=== PATIENT | male | born 1960 | race Caucasian/White ===

== ENCOUNTER 2021-06-10 05:50 | Observation (INO) ==
--- NOTE | 2021-05-17 14:59 | PAT Medication Instructions ---
Medication Instructions Date of Service May 17, 2021 Home Medications aspirin 81 mg tablet 81 mg PO QAM cholecalciferol (vitamin D3) 25 mcg (1,000 unit) tablet (Vitamin D3) 25 mcg PO QAM diphenhydramine HCl 25 mg capsule (Benadryl) 25 mg PO QAM furosemide 20 mg tablet (Lasix) 20 mg PO QAM multivitamin 1 tab PO QAM omega-3 fatty acids 500 mg PO QAM potassium chloride 10 mEq tablet,extended release 10 meq PO QAM pravastatin 20 mg tablet 20 mg PO QAM primidone 50 mg tablet 100 mg PO QAM pyridoxine (vitamin B6) 100 mg tablet (Vitamin B-6) 100 mg PO QAM sertraline 100 mg tablet 100 mg PO QAM STOP taking 2 weeks before surgery omega-3 fatty acids 500 mg PO QAM DO NOT take the morning of surgery cholecalciferol (vitamin D3) 25 mcg (1,000 unit) tablet (Vitamin D3) 25 mcg PO QAM diphenhydramine HCl 25 mg capsule (Benadryl) 25 mg PO QAM furosemide 20 mg tablet (Lasix) 20 mg PO QAM multivitamin 1 tab PO QAM potassium chloride 10 mEq tablet,extended release 10 meq PO QAM pyridoxine (vitamin B6) 100 mg tablet (Vitamin B-6) 100 mg PO QAM Take morning of surgery With a small sip of water, OTHERWISE NOTHING TO EAT OR DRINK AFTER MIDNIGHT: aspirin 81 mg tablet 81 mg PO QAM (unless directed otherwise by surgeon) pravastatin 20 mg tablet 20 mg PO QAM primidone 50 mg tablet 100 mg PO QAM sertraline 100 mg tablet 100 mg PO QAM Other Notes If you have any questions please call us at [phone] or [phone] or [phone] or [phone]
--- NOTE | 2021-05-18 13:33 | Anesthesiology Consultation ---
Date of Service May 18, 2021 Assessment & Plan (1) Encounter for pre-operative examination: - Outpatient joint pathway: Per surgeon and patient, plan for outpatient joint program. Case discussed with Dr. Cat. Upon review of chart- patient is NOT recommended candidate for Same Day Joint Program from anesthesia perspective pending perioperative course given h/o supplemental oxygen needed post-op, untreated sleep apnea. Lidia at surgeon's office made aware. - COVID screening: Per assessment on 05/18/2021: Travel screen negative, no known COVID-19 positive contacts or current COVID-19 related symptoms in past 2 weeks. Patient vaccinated. Surgeon arranging preop COVID testing, scheduled 06/08/2021. Awaiting results. Chart Review Chart Review: Acceptable Risk for Surgery and Patient seen in Pre Admission Testing Teaching & Discussion Pre-Anesthesia Teaching/Discussion Notes: Instructed NPO after midnight before surgery, except medications with 15 cc of water. Medication instructions provided according to the PAT guidelines. History Surgery Operation Date: 06/10/21 09:10 Proposed Procedures p Left Total Knee Arthroplasty - Colton Stone DO Height/Weight Height: 6 ft 1 in Weight: 141.8 kg Allergies Allergy/AdvReac Type Severity Reaction Status Date / Time No Known Allergies Allergy Verified 05/17/21 10:01 Medications Home Medications Medication Instructions Recorded Confirmed Last Taken aspirin 81 mg tablet 81 mg PO QAM 05/17/21 05/18/21 Unknown cholecalciferol (vitamin D3) 25 25 mcg PO QAM 05/17/21 05/18/21 Unknown mcg (1,000 unit) tablet (Vitamin D3) diphenhydramine HCl 25 mg capsule 25 mg PO QAM 05/17/21 05/18/21 Unknown (Benadryl) furosemide 20 mg tablet (Lasix) 20 mg PO QAM 05/17/21 05/18/21 Unknown multivitamin 1 tab PO QAM 05/17/21 05/18/21 Unknown omega-3 fatty acids 500 mg PO QAM 05/17/21 05/18/21 Unknown potassium chloride 10 mEq 10 meq PO QAM 05/17/21 05/18/21 Unknown tablet,extended release pravastatin 20 mg tablet 20 mg PO QAM 05/17/21 05/18/21 Unknown primidone 50 mg tablet 100 mg PO QAM 05/17/21 05/18/21 Unknown pyridoxine (vitamin B6) 100 mg 100 mg PO QAM 05/17/21 05/18/21 Unknown tablet (Vitamin B-6) sertraline 100 mg tablet 100 mg PO QAM 05/17/21 05/18/21 Unknown Past Medical History Medical History Anxiety Borderline hypertension HLD (hyperlipidemia) Osteoarthritis Sleep apnea Tremor Patient denies h/o stroke, seizures, heart attack, heart failure, DM, blood clots or blood transfusions. Exercise / Class Metabolic Activity II 4-5 Yardwork/Stairs/Walk up hill (denies CP or SOB with 1 FOS) Past Family History Family History Other No family history of adverse response to anesthesia Past Surgical History Surgical History Benign skin growth History of arthroscopy of left knee History of tonsillectomy Past Anesthesia History No Family Hx of Anesthesia Complications and Other ("wakes up better with oxygen" states has often required supplemental O2 post-op, denies re-intubation) History of PONV No Hx of PONV and No Hx of Motion Sickness Social History Smoking Status: Former smoker tobacco type: smokeless tobacco Do You Dip or Chew Tobacco: Yes (1 can daily-NPO) Smoking End Date: quit 4 years ago Hx Alcohol Use: Yes Alcohol type: beer, wine and hard liquor alcohol intake frequency: a few times a month Hx Substance Use: No substance use type: does not use Review of Systems Patient denies chest pain, shortness of breath, dyspnea on exertion, reflux, fever, chills, cough, wheezing, or palpitations. Physical Exam Vital Signs Vitals BP 154/93 P 63 TEMP 99.2 SP02 96% on RA RESP 17 Physical Full cervical extension range of motion without pain Full TMJ range of motion TMD 3.5 finger breaths Mallampati Score 2 Dentition: edentulous Lungs: normal respiratory effort. Clear throughout to auscultation, no adventitious breath sounds Cardiac: regular rate and rhythm, no murmurs noted Carotid arteries: negative bruit bilat Extremities: no distal extremity edema Lab Results Anesthesia Preop Results Results Anesthesia Widget: WBC 5.82 K/uL (4.8-10.8) 05/18/21 Hgb 15.6 g/dL (14.0-18.0) 05/18/21 Hct 44.8 % (42-52) 05/18/21 Plt 170 K/uL (130-400) 05/18/21 Na 139 mmol/L (136-145) 05/18/21 K 4.0 mmol/L (3.5-5.1) 05/18/21 Cl 106 mmol/L (98-107) 05/18/21 CO2 25 mmol/L (21-32) 05/18/21 BUN 16 mg/dl (6-23) 05/18/21 Creat 0.95 mg/dl (0.6-1.4) 05/18/21 Glucose Level 126 mg/dl (70-99(Fasting)) H 05/18/21 PT 10.5 Seconds (9.0-12.0) 05/18/21 PTT 26.6 Seconds (21.0-31.0) 05/18/21 INR 1.0 (0.9-1.1) 05/18/21 Blood Type AB Positive 05/18/21 Antibody Screen NEGATIVE 05/18/21 Testing Electrocardiogram Date: 05/18/21 NSR, rate 61 bpm Chest X-Ray Date: 05/18/21 FINDINGS: Frontal and lateral radiographs of the chest demonstrate the cardiomediastinal silhouette to be within normal limits. The lungs are clear of alveolar opacities. There is no evidence for effusion bilaterally. There is no evidence for vascular congestion. There is no acute osseous pathology. IMPRESSION: 1. No acute cardiopulmonary disease.
--- NOTE | 2021-06-09 13:57 | History & Physical Report ---
Date of Service June 09, 2021 Assessment & Plan (1) Osteoarthritis of left knee: We will proceed with a left total knee arthroplasty. Postoperatively he will be started on aspirin for DVT prophylaxis and kept overnight in the hospital for postoperative medical management. He plans to use [employer] upon discharge. History of Present Illness Chief Complaint: Osteoarthritis of the left knee. Primary Care Provider: NO PCP Efrain is a pleasant 60-year-old male who is been dealing with increasing left knee pain. X-rays and clinical examination have been diagnostic for advanced osteoarthritis of the left knee. He had a left knee meniscectomy done about 15 years ago. After failing extensive conservative treatment, he is elected proceed with a left total knee arthroplasty. Allergies Allergy/AdvReac Type Severity Reaction Status Date / Time No Known Allergies Allergy Verified 05/17/21 10:01 Home Medications Medication Instructions Recorded Confirmed Type aspirin 81 mg tablet 81 mg PO QAM 05/17/21 05/18/21 History cholecalciferol (vitamin D3) 25 25 mcg PO QAM 05/17/21 05/18/21 History mcg (1,000 unit) tablet (Vitamin D3) diphenhydramine HCl 25 mg capsule 25 mg PO QAM 05/17/21 05/18/21 History (Benadryl) furosemide 20 mg tablet (Lasix) 20 mg PO QAM 05/17/21 05/18/21 History multivitamin 1 tab PO QAM 05/17/21 05/18/21 History omega-3 fatty acids 500 mg PO QAM 05/17/21 05/18/21 History potassium chloride 10 mEq 10 meq PO QAM 05/17/21 05/18/21 History tablet,extended release pravastatin 20 mg tablet 20 mg PO QAM 05/17/21 05/18/21 History primidone 50 mg tablet 100 mg PO QAM 05/17/21 05/18/21 History pyridoxine (vitamin B6) 100 mg 100 mg PO QAM 05/17/21 05/18/21 History tablet (Vitamin B-6) sertraline 100 mg tablet 100 mg PO QAM 05/17/21 05/18/21 History Past Med/Surg History Medical History Anxiety Borderline hypertension pcp monitors; no meds HLD (hyperlipidemia) Osteoarthritis Sleep apnea Prev on BiPAP, stopped use, denies repeat study Tremor hands bilat Surgical History Benign skin growth surgically removed from face History of arthroscopy of left knee History of tonsillectomy Family History Other No family history of adverse response to anesthesia Social History Smoking Status: Never smoker Second Hand Exposure: Yes ( smokes); Hx Alcohol Use: Yes Alcohol type: beer, wine and hard liquor Hx Substance Use: No Preferred Language: Chinese Communication Ability: Effective Fuse Spooler Required: No Beliefs That Will Affect Care: None Current Living Situation: Spouse Feels Safe at Home: Yes Assistive Devices: Cane, Denture - Upper, Denture - Lower and Glasses Review of Systems All systems reviewed & are unremarkable except as noted in HPI & below. Physical Exam On physical examination of his left knee, he has good range of motion of 0 to 115 degrees. No instability. Pain over the distal medial femoral condyle and over the medial joint line Constitutional WD/WN, vitals as above Eyes PERRL, conjunctivae normal, anicteric sclerae ENMT external ear and nose normal, oropharynx normal Neck trachea midline, no thyromegaly Respiratory normal respiratory effort Cardiovascular RRR, no murmur, no edema Gastrointestinal (Abdomen) normal bowel sounds, soft, nontender, no hepatosplenomegaly Psychiatric A+Ox3, euthymic affect Results & Data Results & Data Laboratory Results . Diagnostic Findings X-rays of the left knee do show advanced osteoarthritis with joint space narrowing, osteophyte formation, and [id number] articulation. PG Care Time/CCT Total # of Minutes Spent Total Time Spent with Patient: Total time spent is greater than 50% in coordination of care (as documented) at patient's floor/unit and/or counseling patient: Coding Level of Care Code None Diagnoses Osteoarthritis of left knee M17.12
[2021-06-10] MEDS ORDERED: Ketorolac (*for OR use only*) 30 MG, dexAMETHasone 4 MG, KETAMINE HCL (**OR use only) 1... INFIL SCH (06:00)
[2021-06-10] MEDS ORDERED: TRANEXAMIC ACID 1,000 MG **IV Intra-op IV SCH (06:00)
[2021-06-10] MEDS ORDERED: FAMOTIDINE 20 MG TAB PO SCH (06:00)
[2021-06-10] MEDS ORDERED: ACETAMINOPHEN 500 MG TAB PO SCH (06:00)
[2021-06-10] MEDS ORDERED: GABAPENTIN 300 MG CAP PO SCH (06:00)
[2021-06-10] MEDS ORDERED: TRANEXAMIC ACID 1,000 MG **IV Pre-op IV SCH (06:00)
[2021-06-10] MEDS ORDERED: dexAMETHasone 4 MG TAB PO SCH (06:00)
[2021-06-10] MEDS ORDERED: LR 500ML BOLUS, THEN 15ML/HR IV SCH (06:00)
[2021-06-10] MEDS ORDERED: LR 60ML/HR IV SCH (06:00)
--- NOTE | 2021-06-10 06:31 | History & Physical Bridge Note ---
Date of Service June 10, 2021 History & Physical Bridge Note I have examined the patient, reviewed the History & Physical and in the interval since the performance of the History & Physical I have noted the following changes of clinical significance: no changes noted
[2021-06-10] MEDS ORDERED: ROPIVACAINE 0.5% 5 MG/ML 30 ML VIAL ONE (06:37)
[2021-06-10] MEDS ORDERED: BUPIVACAINE 0.5 % 5 MG/1 ML PF 10ML VIAL ONE (06:37)
[2021-06-10] MEDS ORDERED: ORTHO JOINT ANESTHETIC ONE (07:07)
[2021-06-10] MEDS ORDERED: MIDAZOLAM HCL 1 MG/ML 2ML VIAL ONE ×2 (07:25→08:12)
[2021-06-10] MEDS ORDERED: fentaNYL citrate 100 MCG/2 ML VIAL ONE (07:25)
[2021-06-10] MEDS ORDERED: PROPOFOL IV EMULSION 10 MG/ML 100 ML VIAL IV ONE (07:26)
[2021-06-10] MEDS ORDERED: PROMETHAZINE HCL 12.5 MG in SODIUM CHLORIDE 0.9% 50 ML IV PRN (09:00)
[2021-06-10] MEDS ORDERED: fentaNYL citrate 100 MCG/2 ML VIAL IV PRN (09:00)
[2021-06-10] MEDS ORDERED: ePHEDrine sulfate 50 MG/ML AMP IV PRN (09:00)
[2021-06-10] MEDS ORDERED: ONDANSETRON INJ 2 MG/ML 2 ML VIAL IV PRN ×2 (09:00→10:25)
[2021-06-10] MEDS ORDERED: ATROPINE SULFATE 0.1 MG/ML 10ML SYR IV PRN (09:00)
[2021-06-10] MEDS ORDERED: HYDROmorphone INJ 2 MG/ML SYR/VIAL IV PRN (09:00)
[2021-06-10] MEDS ORDERED: ONDANSETRON INJ 2 MG/ML 2 ML VIAL ONE (09:05)
--- NOTE | 2021-06-10 09:16 | Operative Report ---
PG Post Operative Report Pre & Post Diagnosis Operation Date: 06/10/21 08:10 Pre-Op Diagnosis: Degenerative Joint Disease Left Knee Post-Op Diagnosis: Degenerative Joint Disease Left Knee I identified the patient and participated in the time-out.: Yes Procedure Operation Date: 06/10/21 08:10 Actual Procedures p Left Total Knee Arthroplasty(Left) - Colton Stone DO Surgeon Colton Stone, Rafter Cutting Machine Operator Colton Angeles PAC Estimated Blood Loss 10 Findings Consistent with Post-Op Diagnosis Specimens Left femoral and tibial bone Complications none Disposition Disposition: Recovery Room Indications Efrain is a pleasant 60-year-old male who is been doing with chronic increasing left knee pain. X-rays and clinical examination have been diagnostic for advanced arthritis of the left knee. After failing conservative treatment, he has elected to proceed with a left total knee arthroplasty. Description of Procedure Implants used: I used a Carlos Persona total knee arthroplasty system with a size 11 standard PS femur, F tibia with a 30 mm stem extension, 34 oval patella, and a size 10 CPS polyethylene bearing. All components were cemented in place with Biomet cement. Efrain arrived [facility] for the above procedure. He was seen in the preoperative holding area and the operative extremity was identified and signed. He was given a preoperative antibiotic, TXA, a spinal anesthetic and an adductor nerve block. He was taken back to the operating room and laid on the table in supine position. He was given basic sedation. The operative knee was then prepped and draped in sterile fashion. A timeout was done, and the patient and the operative extremity was properly identified. A midline incision was made directly over the patella. Dissection was taken down to the extensor mechanism. A subvastus arthrotomy was used. The medial retinaculum was released and the fat pad was mostly excised. The knee was flexed and the ACL, PCL, and meniscus were removed. A drill was sent down the center of the femoral canal followed by an intramedullary shirin. Off that shirin a distal femoral cutting block was placed. 9 mm was resected off the distal femur at 5 of valgus. A posterior referencing AP sizing guide was then placed on the distal femur. The femur measured to be a size 11 standard. 2 drill holes were placed in 3 of external rotation. A 4-in-1 cutting block was then impacted into place. Anterior, posterior, and chamfer cuts were then made. The proximal tibia was then exposed. An external tibial alignment guide was placed. A tibial cut guide was then anchored in place and the proximal tibia was then resected. The posterior aspect of the knee was then opened up and any additional meniscus fragments and osteophytes were removed. The tibia measured to be a size F. The tibial plate was then placed in the appropriate rotation and the tibia was drilled and punched. Trial components were then placed. I used a size 10 CPS polyethylene insert. The knee was brought through a full range of motion and felt to be stable. The peg holes for the femoral component were then drilled. The patella was then everted and 9 mm was resected off the posterior aspect of the patella. The patella measured to be a size 34 oval. 3 peg holes were then drilled. A trial patella was placed. The knee was once again brought through a full range of motion and felt to be stable. Trial components were then removed. The surrounding soft tissues were injected with 100 cc of an orthopedic pain control cocktail. All components were then cemented into place with Biomet cement. The final polyethylene insert was then snapped into place. Once cement was dry the tourniquet was deflated. Hemostasis was obtained. A dilute betadyne lavage was then done for 3 minutes. The joint was then irrigated with normal saline solution. The subvastus arthrotomy was then closed with #1 Vicryl suture. The skin was closed with 2-0 Vicryl, 3-0V lock suture, and jason. A soft compressive dressing was placed. He was then transferred to a hospital bed and taken to the postanesthesia care unit in stable condition. He tolerated the procedure well. Colton Angeles PA-C, was present for the entire procedure. He was critical for patient positioning, prepping, draping, retraction exposure, wound closure and application of sterile dressing. I attest to the content of the Intraoperative Record and any orders documented therein. Any exceptions are noted below.
--- NOTE | 2021-06-10 10:09 | XRay Report ---
XR knee LT 1 or 2V routine CLINICAL HISTORY: Surgical Post Op. Status post total knee replacement COMPARISON STUDY: No previous studies for comparison. TECHNIQUE: 2 left knee views FINDINGS: The patient is status post total knee replacement. The prosthetic components are in anatomi c alignment with no acute abnormality seen. Air is present within the soft tissues from the procedure . Skin jason are seen anteriorly. IMPRESSION: 1. Status post total knee replacement. ACT 112: Negative or not required by law. Electronically signed by: Lm Herndon M.D. 06/10/2021 10:07 AM
[2021-06-10] MEDS ORDERED: NALOXONE HCL 0.4 MG/1 ML VIAL/CARP IV PRN (10:25)
[2021-06-10] MEDS ORDERED: SODIUM CHLORIDE 0.9% 1000ML 1,000 ML IV SCH (10:25)
[2021-06-10] MEDS ORDERED: HYDROmorphone INJ 0.5 MG/0.5 ML SYR IV PRN (10:25)
[2021-06-10] MEDS ORDERED: MAGNESIUM HYDROXIDE SUSP 30 ML UDC PO PRN (10:25)
[2021-06-10] MEDS ORDERED: oxyCODONE HCL IR 5 MG TAB (IMMEDIATE RELEASE) PO PRN (10:25)
[2021-06-10] MEDS ORDERED: bisacodyL 10 MG SUPP PR PRN (10:25)
[2021-06-10] MEDS ORDERED: METOCLOPRAMIDE HCL INJ 5 MG/ML 2 ML VIAL IV PRN (10:25)
--- NOTE | 2021-06-10 11:42 | Anesthesiology Progress Note ---
Date of Service June 10, 2021 Anesthesia Post Procedure Vital Signs Vital Signs: Temp Pulse Pulse Resp BP Pulse Ox 06/10/21 11:32 36.6 C 69 16 104/62 97 06/10/21 10:56 36.5 C 66 16 105/66 94 06/10/21 10:25 36.6 C 71 18 101/64 87 L 06/10/21 10:10 36.4 C L 72 14 114/64 94 06/10/21 10:00 76 14 107/62 94 06/10/21 09:50 83 14 101/60 94 06/10/21 09:40 36.5 C 75 12 98/52 L 98 06/10/21 06:34 36.9 C 66 18 172/82 H 95 Pain Intensity Left Knee: Pain Intensity: 6 Transfer of Care Handoff Completed per policy Notes Mental Status: alert / awake / arousable and participated in evaluation Patient Amnestic to Procedure: Yes Nausea / Vomiting: adequately controlled Pain: adequately controlled Airway Patency, RR, SpO2: stable & adequate BP & HR: stable & adequate Hydration State: stable & adequate Anesthetic Complications: no major complications apparent
[2021-06-10] MEDS: ACETAMINOPHEN 500 MG TAB PO SCH ×2 (12:12→20:55)
[2021-06-10] MEDS: KETOROLAC 30 MG/ML VIAL IV SCH ×2 (12:12→18:11)
[2021-06-10] MEDS: ceFAZolin 2000MG 2,000 MG/15 ML SYR IV SCH (15:10)
[2021-06-10] MEDS: ASPIRIN 81 MG ECTAB PO SCH (20:54)
[2021-06-10] MEDS: DOCUSATE SODIUM 100 MG CAP PO SCH (20:55)
[2021-06-10] MEDS ORDERED: SENNA 8.6 MG TAB PO SCH (21:00)
[2021-06-11] MEDS: ceFAZolin 2000MG 2,000 MG/15 ML SYR IV SCH (00:48)
[2021-06-11] MEDS: KETOROLAC 30 MG/ML VIAL IV SCH ×2 (00:50→06:10)
[2021-06-11] MEDS: ACETAMINOPHEN 500 MG TAB PO SCH (06:09)
[2021-06-11] MEDS ORDERED: dexAMETHasone 4 MG TAB PO SCH (08:00)
--- NOTE | 2021-06-11 08:12 | Orthopedic Progress Note ---
Date of Service June 11, 2021 Assessment & Plan (1) Status post left knee replacement: Overall is doing very well. Is not any much pain in the left knee. He will be seen by physical therapy today for ambulation and range of motion exercises. His dressing can be changed by the nursing staff after physical therapy. He is on aspirin for DVT prophylaxis. He can be discharged home later today. He will follow-up with orthopedics in 2 weeks. Jeronimo Zuniga was seen and examined at bedside this morning. Overall is doing very well. Is not having much pain in the left knee. He has been up and ambulating to the bathroom. He has no complaints. Review of Systems All systems reviewed & are unremarkable except as noted in HPI & below. Physical Exam On physical examination of the left knee, the dressing is clean and dry. His leg is out full extension. He has active dorsiflexion plantarflexion of his left ankle.. Results & Data Results & Data Laboratory Results . Diagnostic Findings Postoperative x-rays of the left knee show the prosthesis to be in anatomic alignment without any evidence of fracture, dislocation, or loosening. PG Care Time/CCT Total # of Minutes Spent Total Time Spent with Patient: Total time spent is greater than 50% in coordination of care (as documented) at patient's floor/unit and/or counseling patient: Coding Level of Care Code 91316 Post Operative Follow-Up Diagnoses Status post left knee replacement Z96.652
--- NOTE | 2021-06-11 08:16 | Discharge Summary ---
Date of Service June 11, 2021 Admission HPI (Per Admitting) Efrain is a pleasant 60-year-old male who is been dealing with increasing left knee pain. X-rays and clinical examination have been diagnostic for advanced osteoarthritis of the left knee. He had a left knee meniscectomy done about 15 years ago. After failing extensive conservative treatment, he is elected proceed with a left total knee arthroplasty. Admission Exam (Per Admitting) On physical examination of his left knee, he has good range of motion of 0 to 115 degrees. No instability. Pain over the distal medial femoral condyle and over the medial joint line Principal Diagnosis Same as "Discharge Diagnosis" noted below under Discharge Instructions. Discharge Exam On physical examination of the left knee, the dressing is clean and dry. His leg is out full extension. He has active dorsiflexion plantarflexion of his left ankle.. Discharge Data Procedures Performed Operation Date: 06/10/21 08:10 Actual Procedures p Left Total Knee Arthroplasty(Left) - Colton Stone DO Ordered Studies 06/10/21 05:00 US - OR guided needle placemen Routine Hospital Course (1) Status post left knee replacement: On June 10, 2021 Efrain arrived at [facility] and underwent a left knee replacement without complication. He had a spinal anesthetic. Postoperatively he was started on aspirin for DVT prophylaxis and transferred to general orthopedic floors. His hospital course was uneventful. On postop day #1 his vital signs were stable and his pain was well controlled. He was able to participate well with physical therapy doing ambulation and range of motion exercises. He was then discharged home. He will follow-up with orthopedics in 2 weeks. PG Care Time/CCT Total # of Minutes Spent Total Time Spent with Patient: Total time spent is greater than 50% in coordination of care (as documented) at patient's floor/unit and/or counseling patient: Discharge Plan Discharge Items Patient Disposition: Home - Home Health Services Reason For Visit: DJD Left Knee Discharge Diagnosis: Left knee replacement Activity: Per Instructions section Non-emergency contact: Surgeon Call non-emergency contact if: your wound has increased redness and your wound has increased drainage Follow-up/Referrals: Casey Hassan D.O. [Primary Care Provider] - Diet: Regular Addtl Attending Provider Instructions: Activity and Therapy Recommendations: * If you are using [facility] then therapy will be provided at your home until they feel you have accomplished all of your goals. * If you are using [facility] then Physical Therapy will be provided until they feel you are ready to start Outpatient Physical Therapy. * If you are not using home therapy then Outpatient Physical Therapy should start about 3-5 days from your day of surgery. Therapy will last about 6-10 weeks * It is important not to put a pillow under your knee when you are relaxing or sleeping. It is just as important to make sure you are getting your knee perfectly straight as it is to regain your knee bend. * You were shown a series of exercises in the hospital. Do these exercises three times each day including the exercises you were shown in physical therapy. * Get up and walk several times each day. For the first four weeks, try not to stand or walk for more than one hour at a time. If you do stand or walk for more than one hour, you will not hurt anything, but your leg will likely swell. * As you feel comfortable, you may change from the walker or crutches to a cane and then to independent walking. Medications: * Narcotic You will likely be sent home from the hospital with a prescription for the narcotic pain medication that worked best throughout your stay. * Aspirin Most patients will be required to take Aspirin 81mg twice a day for 6 weeks after surgery. This is obtained [id number] and a prescription is not necessary. * Other medications may be prescribed for specific circumstances. If you have any questions, please call the office at . * Resume previous home medications unless otherwise instructed TEDs/Elastic Stockings: The white elastic stockings help limit swelling and prevent blood clots from forming in your legs.~ The more you wear them, the more they work. Wear them for six weeks. Dressing Care: The dressing can be changed after physical therapy on postop day #1. Daily dry dressing changes for a few days, especially if the incision is still draining some. If the incision is not draining then you may leave the jason open to air. If there is a little bit of drainage or if the jason are getting stuck on your clothing then cover the incision with a dry dressing. The jason will be removed at your 2 week follow-up appointment. Showering: You may shower 5 days from the day of surgery as long as the incision is no longer draining. You may shower with the jason exposed. Let soapy water run over the jason and pat them dry. Do not scrub or soak the incision. Things To Watch For: * Drainage from the incision site that occurs more than one week after your surgery. * Increased redness at the incision site. * Fever above 102 degrees Fahrenheit. * Unusual chest pain or shortness of breath. * Call [facility] at with any of the above problems Follow-Up Visit: Follow-up with Dr. Stone's PA (Colton Angeles) 2-3 weeks after your day of surgery. He will remove your jason and answer any questions. If you have any additional questions or concerns, Dr Stone is usually in the office at the same time and will be available An appointment was probably scheduled when you signed-up for surgery in the office. If you have any questions call Office Instructions: More detailed instructions as well as Frequently Asked Questions were provided in a folder by our office when you signed-up for surgery. Please review these instructions when you get home. If you have any further questions or concerns, please feel free to call the office at [phone] Pending Studies at Discharge: No Stand-Alone Forms: My [facility] [employer], Smoking Cessation Medications and DC Order Prescriptions: New oxycodone-acetaminophen 5-325 mg tablet 1 tab PO Q6H PRN (Reason: pain) Qty: 30 RF: 0 aspirin 81 mg Tablet,Delayed Release (Dr/Ec) 81 mg PO BID 42 Days Qty: 84 RF: 0 Continued multivitamin Tablet 1 tab PO QAM RF: 0 primidone 50 mg Tablet 100 mg PO QAM RF: 0 sertraline 100 mg Tablet 100 mg PO QAM RF: 0 potassium chloride 10 mEq Tablet Extended Release 10 meq PO QAM RF: 0 diphenhydramine HCl [Benadryl] 25 mg Capsule 25 mg PO QAM RF: 0 pravastatin 20 mg Tablet 20 mg PO QAM RF: 0 furosemide [Lasix] 20 mg Tablet 20 mg PO QAM RF: 0 pyridoxine (vitamin B6) [Vitamin B-6] 100 mg Tablet 100 mg PO QAM RF: 0 [place] 3 Capsule 500 mg PO QAM RF: 0 cholecalciferol (vitamin D3) [Vitamin D3] 25 mcg (1,000 unit) Tablet 25 mcg PO QAM RF: 0 Discontinued aspirin 81 mg Tablet 81 mg PO QAM RF: 0 Discharge Orders: Discharge Order (Routine); Ordered 06/11/21 Ordered By: Colton Stone Admission Data Admit Date/Time: 06/10/21 09:42 Attending Provider: Colton Stone Admit Provider: Colton Stone Primary Care Provider: Casey Hassan Other Providers: [facility]
[2021-06-11] MEDS ORDERED: PRIMIDONE 50 MG TAB PO SCH (09:00)
[2021-06-11] MEDS ORDERED: NON-FORMULARY MEDICATION (Multivitamin Tablet) PO SCH (09:00)
[2021-06-11] MEDS ORDERED: PYRIDOXINE HCL 50 MG TAB PO SCH (09:00)
[2021-06-11] MEDS ORDERED: SERTRALINE HCL 100 MG TABLET PO SCH (09:00)
[2021-06-11] MEDS ORDERED: PRAVASTATIN SOD 20 MG TAB PO SCH (09:00)
[2021-06-11] MEDS ORDERED: FUROSEMIDE 20 MG TAB PO SCH (09:00)
[2021-06-11] MEDS ORDERED: MULTIVITAMIN TAB PO SCH (09:00)
[2021-06-11] MEDS ORDERED: POTASSIUM CHLORIDE 10 MEQ TABCR PO SCH (09:00)
[2021-06-11] MEDS ORDERED: diphenhydrAMINE Capsule 25 MG CAP PO SCH (09:00)
[2021-06-11] MEDS: ASPIRIN 81 MG ECTAB PO SCH (09:27)
[2021-06-11] MEDS: DOCUSATE SODIUM 100 MG CAP PO SCH (09:28)
== END 2021-06-11 12:18 | disposition home health service (06) ==
LOC: 3E 05:50 → ASU 05:50